=== PATIENT | female | born 1950 | race American Indian/Alaskan Native ===

== ENCOUNTER 2016-12-30 19:18 | Emergency (ER) | payer MEDICARE ==
[2016-12-30 20:09] VITALS: BMI 46.8
[2016-12-30 20:16] VITALS: TEMP 98.3
--- NOTE | 2016-12-30 22:57 | ED PDOC ---
Arrival/HPI - General Historian: Patient <Kandy Bolton A - Last Filed: 12/30/16 22:59> <Adrian Peterson - Last Filed: 12/30/16 23:36> - General Chief Complaint: Lower Extremity Problem/Injury Time Seen by Provider: 12/30/16 21:56 - History of Present Illness Narrative History of Present Illness (Text): 12/30/16 22:54 66yo female referred to Ed by Dr. Greenfield for left ankle fracture. Patient states she was seen by Dr. Greenfield on 12/28/16 after a trauma , and had knee and ankle Xray. . States she was called by Dr. Greenfield's office and told she have ankle fracture . She states her ankle pain has improved. states she was applying bio freeze and a cream that was given by her PMD. She denies calf pain and any other complaint. (Kandy Bolton A) Past Medical History - Provider Review Nursing Documentation Reviewed: Yes - Infectious Disease Hx of Infectious Diseases: None - Reproductive Menopause: Yes - Cardiac Hx Hypertension: Yes - Pulmonary Hx Respiratory Disorders: No - Neurological Hx Neurological Disorder: No - HEENT Hx HEENT Disorder: No - Renal Hx Renal Disorder: No - Endocrine/Metabolic Hx Endocrine Disorders: No - Hematological/Oncological Hx Blood Disorders: No - Integumentary Hx Dermatological Disorder: No - Musculoskeletal/Rheumatological Hx Musculoskeletal Disorders: No - Gastrointestinal Hx Gastrointestinal Disorders: No - Genitourinary/Gynecological Hx Genitourinary Disorders: No - Psychiatric Hx Psychophysiologic Disorder: No Hx Substance Use: No - Anesthesia Hx Anesthesia: No Hx Anesthesia Reactions: No Hx Malignant Hyperthermia: No <Kandy Bolton A - Last Filed: 12/30/16 22:59> Family/Social History - Physician Review Nursing Documentation Reviewed: Yes Family/Social History: Unknown Family HX Smoking Status: Never Smoked Hx Alcohol Use: No Hx Substance Use: No <Kandy Bolton A - Last Filed: 12/30/16 22:59> Review of Systems - Physician Review All systems were reviewed & negative as marked: Yes - Review of Systems Constitutional: Normal Eyes: Normal ENT: Normal Respiratory: Normal Cardiovascular: Normal Gastrointestinal: Normal Genitourinary Female: Normal Musculoskeletal: Arthralgias (right ankle pain) Skin: Normal Neurological: Normal Endocrine: Normal Hemo/Lymphatic: Normal Psychiatric: Normal <Kandy Bolton A - Last Filed: 12/30/16 22:59> Physical Exam Vital Signs Reviewed: Yes Temperature: Afebrile Blood Pressure: Normal Pulse: Regular Respiratory Rate: Normal Appearance: Positive for: Well-Appearing, Non-Toxic, Comfortable Pain Distress: None Mental Status: Positive for: Alert and Oriented X 3 - Systems Exam Head: Present: Atraumatic, Normocephalic Pupils: Present: PERRL Extroacular Muscles: Present: EOMI Conjunctiva: Present: Normal Mouth: Present: Moist Mucous Membranes Neck: Present: Normal Range of Motion Respiratory/Chest: Present: Clear to Auscultation, Good Air Exchange. No: Respiratory Distress, Accessory Muscle Use Cardiovascular: Present: Regular Rate and Rhythm, Normal S1, S2. No: Murmurs Abdomen: Present: Normal Bowel Sounds. No: Tenderness, Distention, Peritoneal Signs Back: Present: Normal Inspection Upper Extremity: Present: Normal Inspection. No: Cyanosis, Edema Lower Extremity: Present: NORMAL PULSES, Normal ROM, Tenderness (Right lateral malleolus), Swelling (Right ankle). No: Edema, CALF TENDERNESS, Cyanosis, Guille 's Sign, Erythema, Deformity, Temperature Abnormalties Neurological: Present: GCS=15, CN II-XII Intact, Speech Normal Skin: Present: Warm, Dry, Normal Color. No: Rashes Psychiatric: Present: Alert, Oriented x 3, Normal Insight, Normal Concentration <Kandy Bolton A - Last Filed: 12/30/16 22:59> Vital Signs Temp Pulse Resp BP Pulse Ox 12/30/16 20:09 98.3 F 97 H 17 176/84 H 97 Medical Decision Making <Kandy Bolton - Last Filed: 12/30/16 22:59> <Adrian Peterson - Last Filed: 12/30/16 23:36> ED Course and Treatment: 12/30/16 22:58 Ankle xray from previous visit reviewed - IMPRESSION: Evidence of acute nondisplaced fracture involving the distal fibula. Soft tissue swelling. 12/30/16 23:00 Short calf posterior splint placed. Cane given for ambulation. Case was DW dr. Greenfield. Pt referred to orthopedist, Dr. Celaya. (Kandy Bolton A) - PA / ADMINISTRATIVE COURT JUSTICE / Resident Statement MD/DO has reviewed & agrees with the documentation as recorded. CULLEN has examined the patient and agrees with the treatment plan. <Adrian Peterson - Last Filed: 12/30/16 23:36> Disposition/Present on Arrival - Present on Arrival Any Indicators Present on Arrival: No History of DVT/PE: No History of Uncontrolled Diabetes: No Urinary Catheter: No History of Decub. Ulcer: No History Surgical Site Infection Following: None - Disposition Have Diagnosis and Disposition been Completed?: Yes Disposition Time: 23:00 Patient Plan: Discharge <Kandy Bolton - Last Filed: 12/30/16 22:59> <Adrian Peterson - Last Filed: 12/30/16 23:36> - Disposition Diagnosis: Ankle fracture Discharge Instructions (ExitCare): Ankle Fracture (ED) Additional Instructions: Follow up with orthopedist Return to ED for any new or worsening symptoms Prescriptions: traMADol [Ultram] 50 mg PO Q8 #10 tab Referrals: Juliette Greenfield MD [Primary Care Provider] - Follow up with primary Kervin Celaya MD [Staff Provider] - Follow up with primary
[2016-12-30 23:40] VITALS: BP 163/80; PULSE 90; RESP 16; O2SAT 100
== END 2016-12-30 23:44 | disposition home or self-care (01) ==
LOC: ED 19:18
DX: S82.892A Other fracture of left lower leg, initial encounter for closed fracture (principal); X58.XXXA Exposure to other specified factors, initial encounter

== ENCOUNTER 2019-01-29 07:14 | Day surgery (SDC) | payer MEDICARE ==
[2019-01-25 16:48] VITALS: BMI 45.1
[2019-01-29] MEDS ORDERED: Propofol 10 mg/ml Inj (20 ML) ONE (09:29)
[2019-01-29] MEDS ORDERED: Sodium Chloride 0.9% 1,000 ML IV SCH (10:15)
[2019-01-29 11:03] VITALS: BP 171/56; PULSE 52; RESP 20; TEMP 97.4; O2SAT 98
--- NOTE | 2019-01-29 23:56 | CARD ---
APPROVED REPORT Date of service: 01/29/2019 EKG Measurement Heart [id number] <Conclusion> Normal sinus rhythm Normal ECG
== END 2019-01-29 11:35 | disposition home or self-care (01) ==
LOC: ENDO 07:14
PROVIDERS: ATTEND Internal Medicine Gastroenterology
DX: Z12.11 Encounter for screening for malignant neoplasm of colon (principal); K57.30 Diverticulosis of large intestine without perforation or abscess without bleeding; K21.0 Gastro-esophageal reflux disease with esophagitis; K29.70 Gastritis, unspecified, without bleeding; K64.1 Second degree hemorrhoids; I10 Essential (primary) hypertension; J45.909 Unspecified asthma, uncomplicated; E66.9 Obesity, unspecified; Z68.42 Body mass index [BMI] 45.0-49.9, adult
CPT/HCPCS: 43239; 45378; 88305; 88312; 88342; 93005; J2001; J2704; J3010; J7030; J7040